=== PATIENT | female | born 1980 | race Caucasian/White ===

== ENCOUNTER 2018-10-09 08:02 | Inpatient (IN) ==
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
[~2018-10-09 08:02] MED LIST: Epidural Premix (fent/bupiv) 110 ML EP SCH; Famotidine 20 MG/2 ML VIAL IVP PRN; Metoclopramide 10 MG/2 ML VIAL IVP PRN; Naloxone 0.4 MG/ML INJ IVP PRN; Ondansetron 4 MG/2 ML VIAL IVP PRN; Oxytocin 20 units/ LR 1000 mL 20 UNIT/1,000 ML BAG IVC SCH; Ringers Solution, Lactated 1,000 ML IVC SCH
[2018-10-09 10:07] LABS: Amphetamine Screen,Urine Positive ng/mL (Cutoff=1000); Barbiturate Screen,Urine Negative ng/mL (Cutoff=200); Benzodiazepines Screen,Urine Negative ng/mL (Cutoff=200); Cannabinoid Screen,Urine Negative ng/mL (Cutoff = 50); Cocaine Screen,Urine Negative ng/mL (Cutoff= 300); Opiate Screen,Urine Positive ng/mL (Cutoff=300); Phencyclidine Screen,Urine Negative ng/mL (Cutoff=25)
[2018-10-09] MEDS ORDERED: Lidocaine 1% 20 ML MDV ID PRN (10:21)
[2018-10-09] MEDS ORDERED: *HR* Nalbuphine 10 MG/ML AMPUL IVP PRN (10:21)
[2018-10-09 10:31] LABS: Basophils # 0.1 K/mcL (0.0-0.2); Basophils % 0.5 %; Eosinophils # 0.2 K/mcL (0.0-0.6); Eosinophils % 1.8 %; Hematocrit 32.3 % (35.3-44.9); Hemoglobin 10.2 g/dL (11.5-15.4); Immature Granulocytes % 0.6 % (0-4); Lymphocytes % 31.7 %; Mean Corpuscular HGB Conc 31.6 g/dL (31.6-35.5); Mean Corpuscular Hemoglobin 23.4 pg (28.0-33.3); Mean Corpuscular Volume 74.3 fL (83.0-100.0); Mean Platelet Volume 10.6 fL (9.4-12.4); Monocytes # 0.6 K/mcL (0.0-1.3); Monocytes % 4.8 %; Neutrophils # 7.6 K/mcL (1.6-8.9); Platelet Count 401 K/mcL (140-400); Red Blood Count 4.35 M/mcL (3.82-4.97); Red Cell Distribution Width 14.6 % (11.5-14.5); Segmented Neutrophils % 60.6 %; White Blood Count 12.6 K/mcL (4.3-11.1)
--- NOTE | 2018-10-09 12:09 | OB/GYN History & Physical ---
Date of Encounter: 10/09/18 Time of Encounter: 12:09 Assessment and Plan (1) 37 weeks gestation of Current visit: Yes Status: Acute Admit for labor GBS unknown - allergic to PCN use vanc Pitocin augmentation May have epidural upon request Anticipate vaginal delivery POC per consult with Dr Weller (2) Spontaneous rupture of membranes Current visit: Yes Status: Acute (3) IV drug abuse complicating Current visit: Yes Status: Acute (4) Hepatitis C Current visit: Yes Status: Acute Qualifiers: Viral hepatitis chronicity: unspecified Hepatic coma status: without hepatic coma Qualified Code(s): B19.20 - Unspecified viral hepatitis C without hepatic coma History of Present Illness Chief complaint: Leaking of fluid HPI: Ms. Raza is a 38 year old at 37 weeks 6 days that presents to labor and delivery with c/o SROM at 0330 this AM. She had a total of 4 visits this . She was a member of [employer] [facility] and has since switched to another group. She is postiive for Hep C and is AMA. She was positive for amphetamines and opiates today and admits to using IV fentanyl 2 days ago. She states positive movement. She denies headaches, vision changes, and epigastric pain. Past Med Surg Social Fam HX - Past Medical History Medical history: hepatitis, seizures Additional medical history: hepatitis C Psychiatric history: anxiety, depression - Past Surgical History Surgical History: no surgical history - Social History Smoking Status: Current every day smoker Packs per day: 1ppd Smokeless Tobacco Status: No Alcohol use: none, occasionally Drug use: opiates, IV Drug Use, prescription drug abuse, other - Family History Mother Adopted: [place]: Cyndi Stout Age: 52 Family Member Ethnicity: Non- Living Status: Still Living Hx Family Cardiac Disorders: No Hx Family Respiratory Disorders: No Hx Family Cancer: No Hx Family GI Disorders: No Hx Family Genitourinary Disorders: No Hx Family Endocrine Disorder: No Hx Family Musculoskeletal Disorders: No Hx Family Neuromuscular Disorders: No Hx Family Neurologic Disorders: No Hx Family HEENT Disorders: No Hx Family Autoimmune Disorders: No Hx Family Reproductive Disorders: No Hx Family Psychosocial Disorders: Yes (depression) Hx Family Medical Disorders: No Obstetrical History - Pregnancies : 5 Para: 2 Term: 2 : 0 Ab's: 2 Livin Medications and Allergies Gabapentin [Neurontin] 600 mg PO TID 10/09/18 [History] Allergy/AdvReac Type Severity Reaction Status Date / Time Carbinoxamine [From [facility]] AdvReac Rash Verified 10/09/18 11:23 Penicillins AdvReac Rash Verified 10/09/18 11:23 pseudoephedrine [From [facility]] AdvReac Rash Verified 10/09/18 11:23 Review of System OB All systems PM: reviewed and no additional remarkable complaints except as stated Exam - Constitutional Constitutional: well developed, no acute distress, thin - HEENT HEENT: Normocephaly, Mucus Membranes Moist - Neck Neck exam: full ROM - Cardiovascular Cardiovascular exam: RRR, +S1, +S2 - Abdomen Abdomen: Present: bowel sounds normal, gravid, non tender - Extremities Extremities exam: normal capillary refill, normal inspection, radial pulses palpable and symmetrical Deep Tendon Reflex Grade: 2+ Normal - Cervix Dilation: 3 Effacement: 80 Station: -1 - Uterus Uterus exam: Present: normal size, normal contour Results Result Diagrams: 10/09/18 09:35 Abnormal lab results WBC 12.6 K/mcL (4.3-11.1) H 10/09/18 09:35 Hgb 10.2 g/dL (11.5-15.4) L 10/09/18 09:35 Hct 32.3 % (35.3-44.9) L 10/09/18 09:35 MCV 74.3 fL (83.0-100.0) L 10/09/18 09:35 MCH 23.4 pg (28.0-33.3) L 10/09/18 09:35 RDW 14.6 % (11.5-14.5) H 10/09/18 09:35 Plt Count 401 K/mcL (140-400) H 10/09/18 09:35 Urine Opiates Screen Positive ng/mL ([id number]) H 10/09/18 09:35 Ur Amphetamines Screen Positive ng/mL ([id number]) H 10/09/18 09:35 All other labs normal. - VTE Reasons for not Prescribing Prophylaxis: Treatment not Indicated - Low risk for VTE
[2018-10-09] MEDS ORDERED: *HR* Oxytocin 10 UNIT/ML VIAL IM ONE (12:29)
--- NOTE | 2018-10-09 14:58 | Anesthesia Procedures ---
Date of Encounter: 10/09/18 Time of Encounter: 14:39 Procedures: Anesthesia - Epidural/Spinal Patient ID/Chart reviewed: Yes Patient examined: Yes OB Eval: Gestational age: term OB Eval: Contractions: Non-stressed pattern Consent Obtained: Yes Supplemental Oxygen: None/Room Air Site Prep: Aseptic Technique, Sterile prep and drape, 0.5% Chlorhexidine/Alcohol Patient position: upright Local Anesthetic: Lidocaine 1% Amount of Local Anesthetic used: 2 Touhy Needle Gauge: 18 Touhy Needle Depth (cm): 5 Catheter Depth at Skin (cm): 10 Test Dose (1.5% Lido + Epi): Volume given (mls): 4 Test Dose Result: Negative Loading Dose: Other: 8ml from solution Loading Dose Administered: Thru Catheter Infusion Med: 0.125% Bupivacaine w/ 2 mcg/ml Fentanyl Infusion Rate (mls/hr): [address]: Tegaderm, Tape Interspace Used: L3-L4 Loss of Resistance (HARLEY): Yes (saline) Blood: No CSF: Yes (25g purposeful no inj) Paresthesia: No Procedure: vss though out procedure, FHR stable per RN's, pt moving alot despite verbal asking not to.
[2018-10-09] MEDS ORDERED: Epidural Premix (fent/bupiv) 110 ML EP SCH (15:00)
[2018-10-09] MEDS ORDERED: Ibuprofen 600 MG TABLET PO PRN ×2 (21:15→22:56)
--- NOTE | 2018-10-09 21:27 | OB/GYN Procedure Note ---
Delivery - Delivery Date: 10/09/18 Provider: Jewell Kate Delivery augmentation: pitocin - Infant (s) Infant A Infant Delivery Date: 10/09/18 Infant Delivery Time: 17:50 Presentation: vertex Position: DANYELLE Gender: Female Viability: Viable Weight Gram: 2.105 kg at 1 minute: 8 at 5 mins: 9 Shoulder Dystocia: not encountered Placenta: complete extraction - Repair Laceration Description: Perineal - 2nd Degree - Complications Delivery complications: retained placenta - Disposition Mom disposition: stable in LDR disposition: stable in LDR - Comments Comments: Radha is a 38-year-old now who delivered a viable female at 1750 hrs. Infant was delivered in DANYELLE, no nuchal cord, weight 2105g, Apgars 8/9. I was called in because the placenta could not be delivered from the uterus so I did a manual extraction of the placenta at 1830 hrs. EBL 200. Second-degree laceration was repaired with 3-0 Vicryl. Mother and infant stable.
[2018-10-09] MEDS ORDERED: Rho Immune Globulin 1,500 UNIT SYRINGE IM PRN (21:56)
[2018-10-09] MEDS ORDERED: Acetaminophen 325 MG TABLET PO PRN (21:56)
[2018-10-09] MEDS ORDERED: Measles/Mumps/Rubella Vacc 0.5 ML VIAL SQ PRN (21:56)
[2018-10-09] MEDS ORDERED: Oxytocin 20 units/ LR 1000 mL 20 UNIT/1,000 ML BAG IVC SCH (21:56)
[2018-10-10] MEDS: *HR* Buprenorphine HCl 8 MG TAB.SUBL SL SCH ×2 (00:38→12:05)
[2018-10-10] MEDS: Gabapentin 300 MG CAPSULE PO SCH ×2 (00:39→12:05)
[2018-10-10 07:32] VITALS: BP 125/75
[2018-10-10 08:14] LABS: Basophils % 0.2 %; Eosinophils % 0.2 %; Hemoglobin 8.8 g/dL (11.5-15.4); Immature Granulocytes % 0.5 % (0-4); Lymphocytes # 4.3 K/mcL (0.6-4.6); Lymphocytes % 26.4 %; Mean Corpuscular HGB Conc 31.4 g/dL (31.6-35.5); Mean Corpuscular Hemoglobin 23.5 pg (28.0-33.3); Mean Corpuscular Volume 74.7 fL (83.0-100.0); Mean Platelet Volume 10.5 fL (9.4-12.4); Monocytes # 0.7 K/mcL (0.0-1.3); Neutrophils # 11.2 K/mcL (1.6-8.9); Platelet Count 332 K/mcL (140-400); Red Blood Count 3.75 M/mcL (3.82-4.97); Red Cell Distribution Width 14.5 % (11.5-14.5); Segmented Neutrophils % 68.7 %; White Blood Count 16.3 K/mcL (4.3-11.1)
[2018-10-10] MEDS ORDERED: Prenatal Vit/FA 1 EACH TABLET PO SCH (09:00)
--- NOTE | 2018-10-10 09:46 | Discharge Summary ---
Date of Encounter: 10/10/18 Time of Encounter: 09:43 - Discharge Diagnosis (1) Vaginal delivery Priority: Primary Status: Acute Comments: continue routine care discharge home today follow up with Dr. Mohan in 4-6 weeks (2) Drug abuse and dependence Priority: Secondary Status: Acute Comments: social service consult (3) anemia Priority: Secondary Status: Acute Comments: Will continue ferrous suflate daily (4) Hepatitis C Priority: Secondary Status: Acute Comments: to follow up with pcp Qualifiers: Viral hepatitis chronicity: unspecified Hepatic coma status: without hepatic coma Qualified Code(s): B19.20 - Unspecified viral hepatitis C without hepatic coma - Discharge Medications Prescriptions: New Ferrous Sulfate 325 mg PO DAILY #30 tablet Buprenorphine HCl [Subutex] 8 mg SL BID tab.subl Ibuprofen [Motrin] 600 mg PO Q6HR PRN tablet PRN Reason: cramping Continued Gabapentin [Neurontin] 600 mg PO TID Home Medications: Gabapentin [Neurontin] 600 mg PO TID 10/09/18 [History] Buprenorphine HCl [Subutex] 8 mg SL BID tab.subl 10/10/18 [Rx] Ferrous Sulfate 325 mg PO DAILY #30 tablet 10/10/18 [Rx] Ibuprofen [Motrin] 600 mg PO Q6HR PRN tablet 10/10/18 [Rx] Allergies/Adverse Reactions: Allergy/AdvReac Type Severity Reaction Status Date / Time Carbinoxamine [From [facility]] AdvReac Rash Verified 10/09/18 11:23 Penicillins AdvReac Rash Verified 10/09/18 11:23 pseudoephedrine [From [facility]] AdvReac Rash Verified 10/09/18 11:23 Data Procedures and tests throughout hospitalization: Laboratory Tests 10/09/18 10/09/18 10/09/18 09:35 09:35 19:14 WBC 12.6 H RBC 4.35 Hgb 10.2 L Hct 32.3 L MCV 74.3 L MCH 23.4 L MCHC 31.6 RDW 14.6 H Plt Count 401 H MPV 10.6 Immature Gran % 0.6 Seg Neutrophils % 60.6 Lymphocytes % 31.7 Monocytes % 4.8 Eosinophils % 1.8 Basophils % 0.5 Neutrophils # 7.6 Lymphocytes # 4.0 Monocytes # 0.6 Eosinophils # 0.2 Basophils # 0.1 POC Glucose 81 Urine Opiates Screen Positive H Ur Buprenorphine Scrn Negative Ur Barbiturates Screen Negative Ur Phencyclidine Scrn Negative Ur Amphetamines Screen Positive H U Benzodiazepines Scrn Negative Urine Cocaine Screen Negative U Marijuana (THC) Screen Negative Ur Drug Screen Interp See Below 10/10/18 07:42 WBC 16.3 H RBC 3.75 L Hgb 8.8 L Hct 28.0 L MCV 74.7 L MCH 23.5 L MCHC 31.4 L RDW 14.5 Plt Count 332 MPV 10.5 Immature Gran % 0.5 Seg Neutrophils % 68.7 Lymphocytes % 26.4 Monocytes % 4.0 Eosinophils % 0.2 Basophils % 0.2 Neutrophils # 11.2 H Lymphocytes # 4.3 Monocytes # 0.7 Eosinophils # 0.0 Basophils # 0.0 POC Glucose Urine Opiates Screen Ur Buprenorphine Scrn Ur Barbiturates Screen Ur Phencyclidine Scrn Ur Amphetamines Screen U Benzodiazepines Scrn Urine Cocaine Screen U Marijuana (THC) Screen Ur Drug Screen Interp Labs on day of discharge: Labs from last 24 hours 10/10/18 10/09/18 10/09/18 07:42 19:14 09:35 WBC 16.3 H 12.6 H RBC 3.75 L 4.35 Hgb 8.8 L 10.2 L Hct 28.0 L 32.3 L MCV 74.7 L 74.3 L MCH 23.5 L 23.4 L MCHC 31.4 L 31.6 RDW 14.5 14.6 H Plt Count 332 401 H MPV 10.5 10.6 Immature Gran % 0.5 0.6 Seg Neutrophils % 68.7 60.6 Lymphocytes % 26.4 31.7 Monocytes % 4.0 4.8 Eosinophils % 0.2 1.8 Basophils % 0.2 0.5 Neutrophils # 11.2 H 7.6 Lymphocytes # 4.3 4.0 Monocytes # 0.7 0.6 Eosinophils # 0.0 0.2 Basophils # 0.0 0.1 POC Glucose 81 Urine Opiates Screen Ur Buprenorphine Scrn Ur Barbiturates Screen Ur Phencyclidine Scrn Ur Amphetamines Screen U Benzodiazepines Scrn Urine Cocaine Screen U Marijuana (THC) Screen Ur Drug Screen Interp 10/09/18 09:35 WBC RBC Hgb Hct MCV MCH MCHC RDW Plt Count MPV Immature Gran % Seg Neutrophils % Lymphocytes % Monocytes % Eosinophils % Basophils % Neutrophils # Lymphocytes # Monocytes # Eosinophils # Basophils # POC Glucose Urine Opiates Screen Positive H Ur Buprenorphine Scrn Negative Ur Barbiturates Screen Negative Ur Phencyclidine Scrn Negative Ur Amphetamines Screen Positive H U Benzodiazepines Scrn Negative Urine Cocaine Screen Negative U Marijuana (THC) Screen Negative Ur Drug Screen Interp See Below Date of admission: 10/09/18 08:05 Primary care physician: PCP NONE Consults: 10/09/18 11:16 Consult to [employer] Expert (W&C) [CONS] Stat Reason For Exam: Reason for SW Consult: IV drug use last 2 days, subutex [place], no custody of other 2 kids, positive drug screen today amphetamines/opiates 10/09/18 21:56 Consult to Supervisor [employer] [CONS] Routine Comment: Vaginal delivery, consult needed Discharging clinician: Alyssa Ramirez Anticipated date of discharge: 10/10/18 - Patient Status Disposition: Home, Self-Care Condition: Good Functional capacity at discharge: independent ambulation - Discharge Instructions Follow Up With: NONE,PCP [Primary Care Provider] - Naseem Mohan MD [Partnered Physician] - - Diet and Activity Activity: increase activity as tolerated Diet: regular diet Hospital Course Reason for admission: active labor Delivery: Episiotomy: none Laceration: 2nd degree Other procedures: none complications: retained placenta Discharge diagnosis: IUP at term delivered [place] baby: female (bottle feeding) Time Attestation: Total time spent providing and/or coordinating discharge services: Time Spent: Less than 30 minutes Exam - Constitutional Vitals: Temp Pulse Resp BP Pulse Ox 98.3 F 83 14 125/75 98 10/10/18 07:00 10/10/18 07:00 10/10/18 07:00 10/10/18 07:00 10/10/18 07:00 General appearance IM: A&O X 3, pleasant, answers questions appropriately - Respiratory Respiratory exam: Present: CTAB - Cardiovascular Cardiovascular exam IM: Present: RRR, +S1, +S2 - GI/Abdominal GI/Abdominal exam IM: normal bowel sounds - Uterine Tone: Firm Uterus Position: At Umbilicus, Midline - Extremities Exam Extremities exam IM: Present: full ROM, normal capillary refill, normal inspection - Neurological Exam Neurological exam: alert, oriented X3, reflexes normal
== END 2018-10-10 12:30 | disposition home or self-care (01) | DRG 541 ==
LOC: 1NENULAB → 1NENUOBS 20:46
PROVIDERS: ADMIT Registered Nurse; ATTEND Registered Nurse

== ENCOUNTER 2019-11-06 15:03 | Inpatient (IN) ==
[2019-11-06] MEDS ORDERED: *HR* Labetalol 20 MG/4 ML SYRINGE IVP ONE ×2 (15:34→15:35)
[2019-11-06] MEDS ORDERED: Naloxone 0.4 MG/ML INJ IVP PRN (16:12)
[2019-11-06] MEDS ORDERED: Ondansetron 4 MG/2 ML VIAL IVP PRN (16:12)
[2019-11-06] MEDS ORDERED: Ibuprofen 600 MG TABLET PO ONE (16:12)
[2019-11-06 16:33] LABS: Basophils % 0.4 %; Eosinophils # 0.2 K/mcL (0.0-0.6); Eosinophils % 2.3 %; Hematocrit 33.8 % (35.3-44.9); Hemoglobin 11.5 g/dL (11.5-15.4); Immature Granulocytes % 0.2 % (0-4); Lymphocytes # 3.3 K/mcL (0.6-4.6); Lymphocytes % 32.1 %; Mean Corpuscular Hemoglobin 28.8 pg (28.0-33.3); Mean Corpuscular Volume 84.5 fL (83.0-100.0); Mean Platelet Volume 10.4 fL (9.4-12.4); Monocytes # 0.4 K/mcL (0.0-1.3); Monocytes % 4.3 %; Neutrophils # 6.2 K/mcL (1.6-8.9); Platelet Count 263 K/mcL (140-400); Red Cell Distribution Width 13.2 % (11.5-14.5); Segmented Neutrophils % 60.7 %; White Blood Count 10.2 K/mcL (4.3-11.1)
[2019-11-06 16:37] LABS: Alanine Aminotransferase 13 Units/L (7-52); Aspartate Amino Transferase 22 Units/L (13-39); BUN/Creatinine Ratio 20 (6-26); Blood Urea Nitrogen 12 mg/dL (6-20); Lactate Dehydrogenase 165 Units/L (140-271); Uric Acid 4.5 mg/dL (2.3-7.6); eGFR For African Americans > 60 (> 60); eGFR For Non-African Americans > 60 (> 60)
[2019-11-06 17:06] LABS: Amphetamine Screen,Urine Positive ng/mL (Cutoff=1000); Barbiturate Screen,Urine Negative ng/mL (Cutoff=200); Benzodiazepines Screen,Urine Negative ng/mL (Cutoff=200); Cannabinoid Screen,Urine Positive ng/mL (Cutoff = 50); Cocaine Screen,Urine Negative ng/mL (Cutoff= 300); Opiate Screen,Urine Positive ng/mL (Cutoff=300); Phencyclidine Screen,Urine Negative ng/mL (Cutoff=25)
[2019-11-06 18:54] LABS: Protein/Creatinine Ratio,Urine 0.22 mg/mg (0.00-0.20)
[2019-11-06 19:05] VITALS: BP 138/92
== END 2019-11-06 19:50 | disposition left against medical advice (07) | DRG 561 ==
LOC: EMEROOARM 15:03 → 1NENULAB 15:48 → 1NENUOBS 18:49
PROVIDERS: ADMIT Registered Nurse; ATTEND Registered Nurse